=== PATIENT | male | born 1985 | race Caucasian/White ===

== ENCOUNTER 2017-12-11 07:39 | Observation (INO) | payer MEDICAID ==
[~2017-12-11] VITALS: Ht 167.6 cm; Wt 67.1 kg
[~2017-12-11 07:39] MED LIST: BALANCED SALT IRRIG SOLN COMB1 500ML OP SCH
[2017-12-11] MEDS ORDERED: CYCLOPENTOLATE HCL 1% OPHTH DROPS 2ML RIGHTEYE ONE (08:00)
[2017-12-11] MEDS ORDERED: TROPICAMIDE 1% OPHTH DROPS 15ML RIGHTEYE ONE (08:00)
[2017-12-11] MEDS ORDERED: PHENYLEPHRINE HCL 10% OPHTH DROPS 5ML RIGHTEYE ONE (08:00)
[2017-12-11] MEDS ORDERED: SODIUM CHLORIDE 0.9% 1,000 ML IV SCH (08:20)
[2017-12-11] MEDS ORDERED: INSU100I13 SQ ×2 (08:27)
[2017-12-11] MEDS ORDERED: INSULIN LISPRO 100 UNITS/ML SUBCUT ONE (08:30)
[2017-12-11] MEDS ORDERED: HYALURONATE SODIUM 14 MG/ML 0.85ML SYRINGE IO ONE (08:57)
[2017-12-11] MEDS ORDERED: FENTANYL CITRATE/PF 50MCG/ML 5ML VIAL ONE (09:10)
[2017-12-11] MEDS ORDERED: MIDAZOLAM HCL 2 MG/2 ML VIAL ONE (09:10)
[2017-12-11] MEDS ORDERED: ACETAMINOPHEN 500MG TABLET PO PRN (09:15)
[2017-12-11] MEDS ORDERED: LABETALOL 5MG/ML SYR 20 MG/4 ML SYRINGE IV PRN (09:15)
[2017-12-11] MEDS ORDERED: ONDANSETRON HCL 4MG/2ML VIAL IV PRN ×2 (09:15→16:30)
[2017-12-11] MEDS ORDERED: TRYPAN BLUE 0.5 ML DISP.SYRIN IO ONE (09:22)
[2017-12-11] MEDS ORDERED: BALANCED SALT IRRIG SOLN COMB1 500ML OP ONE (09:45)
[2017-12-11] MEDS ORDERED: ACETYLCHOLINE CHLORIDE INTRAOCULAR SOLUTION 1:100 ELECTROLYTE DILUENT IO ONE (10:40)
[2017-12-11] MEDS ORDERED: BALANCED SALT IRRIG SOLN 15ML ONE (10:40)
[2017-12-11] MEDS ORDERED: TETRACAINE 0.5% OPHTH DROPS 4ML ONE (10:40)
[2017-12-11] MEDS ORDERED: BUPIVACAINE HCL/PF 0.75% (7.5MG/ML) 10ML ONE (10:40)
[2017-12-11] MEDS ORDERED: PREDNISOLONE ACETATE 1% OPHTH DROPS 1ML ONE (10:40)
[2017-12-11] MEDS ORDERED: NEO/POLYMYX B SULF/DEXAMETH OPHTH OINT 3.5GM ONE (10:40)
[2017-12-11] MEDS ORDERED: CIPROFLOXACIN 0.3% OPHTH SOLN 2.5ML ONE (10:40)
[2017-12-11] MEDS ORDERED: LIDOCAINE HCL 2%/EPINEPHRINE 1:100,000 20 ML VIAL INFIL ONE (10:40)
[2017-12-11 15:00] VITALS: BP 110/70
[2017-12-11 16:00] VITALS: BP 110/70
[2017-12-11] MEDS ORDERED: DEXTROSE 50% WATER 50ML SYRINGE IV PRN (16:30)
[2017-12-11] MEDS ORDERED: MAGNESIUM/ALUMINUM HYDROXIDE/SIMETHICONE 30ML UDC PO PRN (16:30)
[2017-12-11] MEDS ORDERED: CLONIDINE 0.1MG TABLET PO PRN (16:30)
[2017-12-11] MEDS ORDERED: DIPHENHYDRAMINE 50MG/ML VIAL IV PRN (16:30)
[2017-12-11] MEDS ORDERED: ACETAMINOPHEN 325MG TABLET PO PRN (16:30)
[2017-12-11] MEDS: BLOOD SUGAR DIAGNOSTIC STRIP TEST SCH ×2 (17:17→21:28)
[2017-12-11] MEDS: INSULIN LISPRO 100 UNITS/ML SUBCUT SCH ×2 (17:57→21:29)
[2017-12-11] MEDS ORDERED: SODIUM CHLORIDE 0.9% INJ 3ML FLUSH IVF SCH (22:00)
[2017-12-11] MEDS ORDERED: INSULIN GLARGINE UD 100 UNITS/ML SYR SUBCUT SCH (22:00)
== END 2017-12-11 22:23 | disposition home or self-care (01) ==
LOC: OR 07:39 → INTOOBSV 07:40 → 6EST 07:40
PROVIDERS: ADMIT Ophthalmology; ATTEND Ophthalmology
DX: H25.21 Age-related cataract, morgagnian type, right eye (principal); E11.65 Type 2 diabetes mellitus with hyperglycemia; E11.40 Type 2 diabetes mellitus with diabetic neuropathy, unspecified; G93.41 Metabolic encephalopathy
CPT/HCPCS: 66850; 66986; 82962; 96372; G0378; J1815; J2250; J3010; J3490; J7030; Q9957; V2632

== ENCOUNTER 2018-03-12 06:52 | Day surgery (SDC) | payer MEDICAID ==
[~2018-03-12] VITALS: Ht 167.6 cm; Wt 64.0 kg
[~2018-03-12 06:52] MED LIST changes: -BALANCED SALT IRRIG SOLN COMB1 500ML OP SCH; +CYCLOPENTOLATE HCL 1% OPHTH DROPS 2ML LEFTEYE ONE; +INSU100I13 SQ; +PHENYLEPHRINE HCL 10% OPHTH DROPS 5ML LEFTEYE ONE; +TROPICAMIDE 1% OPHTH DROPS 15ML LEFTEYE ONE
[2018-03-12] MEDS ORDERED: BALANCED SALT IRRIG SOLN COMB1 500ML OP SCH (07:00)
[2018-03-12] MEDS ORDERED: HYALURONATE SODIUM 14 MG/ML 0.85ML SYRINGE IO ONE (07:33)
[2018-03-12] MEDS ORDERED: LACTATED RINGERS 1,000 ML IV SCH (08:20)
[2018-03-12] MEDS ORDERED: MIDAZOLAM HCL 2 MG/2 ML VIAL ONE (10:11)
[2018-03-12] MEDS ORDERED: PROPOFOL 200MG/20ML VIAL IV ONE (10:11)
[2018-03-12] MEDS ORDERED: LIDOCAINE HCL/PF 1% 10 MG/ML 5ML VIAL ONE (10:11)
[2018-03-12] MEDS ORDERED: HEPARIN 100 UNITS/1 ML VIAL ONE (11:05)
[2018-03-12] MEDS ORDERED: LIDOCAINE HCL 2%/EPINEPHRINE 1:100,000 20 ML VIAL INFIL ONE (14:44)
[2018-03-12] MEDS ORDERED: PHENYLEPHRINE HCL 10% OPHTH DROPS 5ML ONE (14:44)
[2018-03-12] MEDS ORDERED: CYCLOPENTOLATE HCL 1% OPHTH DROPS 2ML ONE (14:44)
[2018-03-12] MEDS ORDERED: BALANCED SALT IRRIG SOLN 15ML ONE (14:44)
[2018-03-12] MEDS ORDERED: NEO/POLYMYX B SULF/DEXAMETH OPHTH OINT 3.5GM ONE (14:44)
[2018-03-12] MEDS ORDERED: BUPIVACAINE HCL/PF 0.75% (7.5MG/ML) 10ML ONE (14:44)
[2018-03-12] MEDS ORDERED: PREDNISOLONE ACETATE 1% OPHTH DROPS 1ML ONE (14:44)
[2018-03-12] MEDS ORDERED: TROPICAMIDE 1% OPHTH DROPS 15ML ONE (14:44)
[2018-03-12] MEDS ORDERED: TETRACAINE 0.5% OPHTH DROPS 4ML ONE (14:44)
[2018-03-12] MEDS ORDERED: PILOCARPINE HCL 2% OPHTH DROPS 15ML ONE (14:44)
[2018-03-12] MEDS ORDERED: CIPROFLOXACIN 0.3% OPHTH SOLN 2.5ML ONE (14:44)
[2018-03-12] MEDS ORDERED: LIDOCAINE HCL/PF 2% 20 MG/ML 10ML VIAL ONE (14:44)
== END 2018-03-12 12:00 | disposition home or self-care (01) ==
LOC: OR 06:52
PROVIDERS: ATTEND Ophthalmology
DX: E11.36 Type 2 diabetes mellitus with diabetic cataract (principal); H25.22 Age-related cataract, morgagnian type, left eye; Z79.4 Long term (current) use of insulin; Z83.3 Family history of diabetes mellitus
CPT/HCPCS: 66982; 82962; 93005; J2250; J3490; J7120; V2632; J1642; J2704